=== PATIENT | female | born 1990 | race American Indian/Alaskan Native ===

== ENCOUNTER 2016-08-28 03:40 | Inpatient (IN) | payer MEDICAID ==
[2016-08-28] MEDS ORDERED: SUBLIMAZE IV PRN (06:16)
[2016-08-28] MEDS ORDERED: XYLOCAINE 2% INFILTRATI ONE (06:16)
[2016-08-28] MEDS ORDERED: MINERAL OIL PO PRN (06:16)
[2016-08-28] MEDS ORDERED: ePHEDrine SULFATE IV PRN ×2 (06:16→07:25)
[2016-08-28] MEDS ORDERED: ZOFRAN IV PRN (06:16)
[2016-08-28] MEDS ORDERED: BRETHINE SUB-Q PRN (06:16)
--- NOTE | 2016-08-28 06:19 | History and Physical Report ---
History of Present Illness Date of examination: 08/28/16 (pt presents in labor) Date of admission: 08/28/16 05:45 History of present illness: EDC Confirmation: 09/12/2016 Gestational Age: 10 3/7 weeks Past History : 3 Term Births: 2 Premature Births: 0 Living Children: 2 Para: 2 Mult. Births: 0 Prev : 0 Aborta: 0 Elect. Ab: 0 Spont. 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 of genital herpes: no Partner hx. of genital herpes: no Rash, Viral, or Febrile illness since last LMP? no Varicella/Chicken Pox Status: Unknown TB Risk: no Genetic History Congenital Heart Defect: Mom: no Dad: no Stevan Disease: Mom: no Dad: no Thalassemia Mom: no Dad: no Neural Tube Defect Mom: no Dad: no Down's Syndrome Mom: no Dad: no Young-Sachs Mom: no Dad: no Sickle Cell Disease/Trait Mom: no Dad: no Hemophilia Mom: no Dad: no Muscular Dystrophy Mom: no Dad: no Cystic Fibrosis Mom: no Dad: no [place] Chorea Mom: no Dad: no Mental Retardation Mom: no Dad: no Fragile X Mom: no Dad: no Other Genetic/Chromosomal Disorder Mom: no Dad: no Child w/other defect Mom: no Dad: no Enviromental Exposures Xray Exposure: no Medication, drug, or alcohol use since LMP: no Chemical/Other Exposure: no Exposure to Cat Liter: no Hx of Parvovirus (Fifth Disease): no Occupational Exposure to Children: none Comments: partner smokes marijuana regularly Current Allergies: No known allergies Laboratory Results Date/Time Collected: 02/18/2016 Routine Urinalysis Leukocytes: negative Nitrite: negative Urobilinogen: negative Protein: Negative Blood: negative Ketone: negative Bilirubin: negative Glucose: Negative Urine HCG: positive Review of Systems General Denies fever, chills, sweats, anorexia, fatigue, weakness, malaise, weight loss and sleep disorder. Denies nausea, vomiting, headache, swelling of legs, abdominal pain, vaginal discharge, vaginal bleeding and contractions. Denies vaginal discharge, incontinence, dysuria, hematuria, urinary frequency, amenorrhea, menorrhagia, abnormal vaginal bleeding, pelvic pain, genital sores, decreased libido, painful periods, painful sex, urinary urgency, hot flashes, vaginal dryness, vaginal itching and vaginal odor. CV Denies chest pains, palpitations, syncope, dyspnea on exertion, orthopnea, PND and peripheral edema. Resp Denies cough, dyspnea at rest, excessive sputum, hemoptysis, wheezing and pleurisy. GI Denies nausea, vomiting, diarrhea, constipation, change in bowel habits, abdominal pain, melena, hematochezia, jaundice, gas/bloating, indigestion/ heartburn, dysphagia and odynophagia. Endo Denies cold intolerance, heat intolerance, polydipsia, polyphagia, polyuria and unusual weight change. Breast Denies left breast lump, right breast lump, nipple discharge, bloody discharge from nipple, breast pain, abnormal mammogram and breast enlargement. MS Denies back pain, joint pain, joint swelling, muscle cramps, muscle weakness, stiffness, arthritis, sciatica, restless legs, leg pain at night and leg pain with exertion. Derm Denies rash, itching, dryness and suspicious lesions. Neuro Denies paralysis, paresthesias, headache, seizures, tremors, vertigo, transient blindness, frequent falls, frequent headaches and difficulty walking. Psych Denies depression, anxiety, irritability and mood swings. Eyes Denies blurring, diplopia, irritation, discharge, vision loss, eye pain and photophobia. ENT Denies earache, ear discharge, tinnitus, decreased hearing, nasal congestion, nosebleeds, sore throat and hoarseness. Allergy Denies urticaria, allergic rash, hay fever and recurrent infections. Heme Denies abnormal bruising, bleeding and enlarged lymph nodes. 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 Vulva/Vagina: No lesions, normal BUS, normal rugae Cervix: No lesions; no cervical motion tenderness Uterus: normal size and position, midline, mobile Adnexae: no masses or tenderness Rectovaginal: no masses or tenderness Past History - Obstetrical History Expected Date of Delivery: 09/12/16 Actual Gestation: 37 Week(s) 6 Day(s) : 3 Para: 2 Hx # Term Pregnancies: 2 Number of Living Children: 2 Medications and Allergies Allergies Allergy/AdvReac Type Severity Reaction Status Date / Time No Known Allergies Allergy Verified 03/26/15 08:08 Home Medications Medication Instructions Recorded Confirmed Last Taken Type Pnv with Ca,No.72/Iron/FA [Pnv 1 tab PO DAILY 12/07/14 12/07/14 12/06/14 14:00 History Plus Multivit Tab] 1 Lidocain2.5%/Prilocai2.5% [Emla] 5 gm TP ONCE #1 tube 03/26/15 Unknown Rx Lidocain2.5%/Prilocai2.5% [Emla] 5 gm TP ONCE PRN #1 tube 03/27/15 Unknown Rx - Vital Signs Vital signs: Vital Signs Pulse BP Pulse Ox 71 129/60 100 08/28/16 03:49 08/28/16 03:49 08/28/16 03:49 Temp Pulse Resp BP Pulse Ox 86 129/60 100 08/28/16 04:09 08/28/16 03:49 08/28/16 04:09 - Physical Exam Breasts: Positive: deferred Cardiovascular: Regular rate, Normal S1, Normal S2 Lungs: Positive: Normal air movement Abdomen: Positive: normal appearance, soft, normal bowel sounds. Negative: distention, tenderness Genitourinary (Female): Positive: normal external genitalia Vulva: both: normal Vagina: Positive: normal moisture. Negative: discharge Cervix: Negative: lesion, discharge Uterus: Positive: normal size, normal contour Adnexa: both: normal Anus/Rectum: Positive: normal perianal skin, heme negative. Negative: rectal mass, hemorrhoids Extremities: Positive: normal Deep Tendon Reflex Grade: Normal +2 - Obstetrical FHR: category 2 (variable decels) Uterine Contraction Monitor Mode: External Cervical Dilatation: 4 Cervical Effacement Percentage: 70 station: -1 Uterine Contraction Pattern: Regular Uterine Tone Measurement Phase: Resting Uterine Contraction Intensity: Moderate Results All other labs normal. Laboratory Data-Patient Name: BONI Crawley BEE Test Date Result Blood Type 04/01/2016 O Rh 04/01/2016 Positive Antibody Screen negative Rubella 04/01/2016 IMMUNE Serology (RPR) 04/01/2016 NR HBsAg 04/01/2016 Negative Hemoglobin 05/27/2016 9.4 Hematocrit 05/27/2016 29.3 Platelets 04/01/2016 272 [id number] Chlamydia DNA 08/11/2016 Negative GC DNA/Culture 08/11/2016 Urine Culture 04/01/2016 Final report Group B Strep cult 02/17/2015 Negative PAP 02/19/2016 Normal, Satisfactory HIV 04/01/2016 AFP/Quad Screen 02/18/2016 Glucola Test 3hr GTT (Fasting) 1 hr 2 hr 3 hr OPTIONAL LABS-Patient Name:BONI Crawley [facility] Test Date Result Varicella Ab Sickle Cell 04/01/2016 Negative PPD Fibronectin Cystic Fibrosis Parvovirus TSH Free T4 Hepatitis C ALT AST Uric Acid Creatinine 24 hr Urine Protein CE Assessment and Plan 26yo @ 37w6d in labor GBS negative Orders in EMR Anticipate delivery
[2016-08-28] MEDS: LACTATED RINGERS 1,000 ML IV SCH ×3 (06:36→07:33)
--- NOTE | 2016-08-28 06:59 | Progress Note ---
Assessment and Plan Position chges. Pt bolusing for epidural. ISE/IUPC placed. Re-eval as needed. Subjective - Subjective Date of service: 08/28/16 (variable decels cont.) Interval history: EDC Confirmation: 09/12/2016 Gestational Age: 10 3/7 weeks Past History : 3 Term Births: 2 Premature Births: 0 Living Children: 2 Para: 2 Mult. Births: 0 Prev : 0 Aborta: 0 Elect. Ab: 0 Spont. 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 of genital herpes: no Partner hx. of genital herpes: no Rash, Viral, or Febrile illness since last LMP? no Varicella/Chicken Pox Status: Unknown TB Risk: no Genetic History Congenital Heart Defect: Mom: no Dad: no Stevan Disease: Mom: no Dad: no Thalassemia Mom: no Dad: no Neural Tube Defect Mom: no Dad: no Down's Syndrome Mom: no Dad: no Young-Sachs Mom: no Dad: no Sickle Cell Disease/Trait Mom: no Dad: no Hemophilia Mom: no Dad: no Muscular Dystrophy Mom: no Dad: no Cystic Fibrosis Mom: no Dad: no [place] Chorea Mom: no Dad: no Mental Retardation Mom: no Dad: no Fragile X Mom: no Dad: no Other Genetic/Chromosomal Disorder Mom: no Dad: no Child w/other defect Mom: no Dad: no Enviromental Exposures Xray Exposure: no Medication, drug, or alcohol use since LMP: no Chemical/Other Exposure: no Exposure to Cat Liter: no Hx of Parvovirus (Fifth Disease): no Occupational Exposure to Children: none Comments: partner smokes marijuana regularly Current Allergies: No known allergies Laboratory Results Date/Time Collected: 02/18/2016 Routine Urinalysis Leukocytes: negative Nitrite: negative Urobilinogen: negative Protein: Negative Blood: negative Ketone: negative Bilirubin: negative Glucose: Negative Urine HCG: positive Review of Systems General Denies fever, chills, sweats, anorexia, fatigue, weakness, malaise, weight loss and sleep disorder. Denies nausea, vomiting, headache, swelling of legs, abdominal pain, vaginal discharge, vaginal bleeding and contractions. Denies vaginal discharge, incontinence, dysuria, hematuria, urinary frequency, amenorrhea, menorrhagia, abnormal vaginal bleeding, pelvic pain, genital sores, decreased libido, painful periods, painful sex, urinary urgency, hot flashes, vaginal dryness, vaginal itching and vaginal odor. CV Denies chest pains, palpitations, syncope, dyspnea on exertion, orthopnea, PND and peripheral edema. Resp Denies cough, dyspnea at rest, excessive sputum, hemoptysis, wheezing and pleurisy. GI Denies nausea, vomiting, diarrhea, constipation, change in bowel habits, abdominal pain, melena, hematochezia, jaundice, gas/bloating, indigestion/ heartburn, dysphagia and odynophagia. Endo Denies cold intolerance, heat intolerance, polydipsia, polyphagia, polyuria and unusual weight change. Breast Denies left breast lump, right breast lump, nipple discharge, bloody discharge from nipple, breast pain, abnormal mammogram and breast enlargement. MS Denies back pain, joint pain, joint swelling, muscle cramps, muscle weakness, stiffness, arthritis, sciatica, restless legs, leg pain at night and leg pain with exertion. Derm Denies rash, itching, dryness and suspicious lesions. Neuro Denies paralysis, paresthesias, headache, seizures, tremors, vertigo, transient blindness, frequent falls, frequent headaches and difficulty walking. Psych Denies depression, anxiety, irritability and mood swings. Eyes Denies blurring, diplopia, irritation, discharge, vision loss, eye pain and photophobia. ENT Denies earache, ear discharge, tinnitus, decreased hearing, nasal congestion, nosebleeds, sore throat and hoarseness. Allergy Denies urticaria, allergic rash, hay fever and recurrent infections. Heme Denies abnormal bruising, bleeding and enlarged lymph nodes. 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 Vulva/Vagina: No lesions, normal BUS, normal rugae Cervix: No lesions; no cervical motion tenderness Uterus: normal size and position, midline, mobile Adnexae: no masses or tenderness Rectovaginal: no masses or tenderness Patient reports: movement normal Objective - Vital Signs Vital Signs: Vital Signs - 12hr 08/28/16 08/28/16 08/28/16 03:49 03:54 03:56 Temperature Pulse Rate 71 93 H 108 H Pulse Rate [ From Monitor] Respiratory Rate Blood Pressure 129/60 Blood Pressure [Right Arm] O2 Sat by Pulse 100 100 64 L Oximetry 08/28/16 08/28/16 08/28/16 03:59 04:04 04:07 Temperature Pulse Rate 77 90 97 H Pulse Rate [ From Monitor] Respiratory Rate Blood Pressure Blood Pressure [Right Arm] O2 Sat by Pulse 100 100 71 L Oximetry 08/28/16 08/28/16 08/28/16 04:09 06:07 06:17 Temperature 98.0 F Pulse Rate 86 90 Pulse Rate [ 90 From Monitor] Respiratory 20 Rate Blood Pressure 104/62 Blood Pressure 104/62 [Right Arm] O2 Sat by Pulse 100 Oximetry 08/28/16 06:35 Temperature Pulse Rate Pulse Rate [ From Monitor] Respiratory 20 Rate Blood Pressure Blood Pressure [Right Arm] O2 Sat by Pulse Oximetry - Exam Breasts: deferred Cardiovascular: Regular rate Lungs: Normal air movement Abdomen: Present: normal appearance, soft. Absent: distention, tenderness Uterus: Present: normal FHR: auscultation normal, category 2 Uterine Contraction Monitor Mode: Internal Cervical Dilatation: 5 (AROM minimal fluid) Cervical Effacement Percentage: 90 (ISE/IUPC) station: -1 Uterine Contraction Pattern: Irregular Uterine Contraction Intensity: Moderate Extremities: normal Deep Tendon Reflex Grade: Normal +2
[2016-08-28] MEDS ORDERED: PITOCin/NS 20 UNIT/1000ML DRIP 20 UNITS/1,000 ML BAG IV SCH (07:00)
[2016-08-28] MEDS ORDERED: ePHEDrine SULFATE ONE (07:20)
[2016-08-28] MEDS ORDERED: NARCAN 2 MG/2 ML IV PRN (07:25)
[2016-08-28 07:27] LABS: Hematocrit 28.7 % (30.3-42.9); Hemoglobin 9.4 gm/dl (10.1-14.3); Mean Corpuscular HGB Conc 33 % (30-34); Mean Corpuscular Hemoglobin 27 pg (28-32); Mean Corpuscular Volume 83 fl (79-97); Platelet Count 184 K/mm3 (140-440); Red Blood Count 3.46 M/mm3 (3.65-5.03); Red Cell Distribution Width 15.9 % (13.2-15.2); White Blood Count 8.3 K/mm3 (4.5-11.0)
[2016-08-28] MEDS: PITOCin/NS 30 UNIT/500ML 30 UNITS/500 ML BAG IV SCH ×2 (07:45→08:13)
[2016-08-28] MEDS ORDERED: fentaNYL-BUPIV 2 MCG/ML-0.125% 200 MCG/100 ML BAG EPIDURAL SCH (08:00)
[2016-08-28] MEDS ORDERED: BENADRYL PO PRN (08:43)
[2016-08-28] MEDS ORDERED: MILK OF MAGNESIA PO PRN (08:43)
[2016-08-28] MEDS ORDERED: LANSINOH TP PRN (08:43)
[2016-08-28] MEDS ORDERED: TUCKS PAD TP PRN (08:43)
[2016-08-28] MEDS ORDERED: METHERGINE PO PRN (08:43)
[2016-08-28] MEDS ORDERED: DULCOLAX PR PRN (08:43)
[2016-08-28] MEDS ORDERED: TYLENOL PO PRN (08:43)
[2016-08-28] MEDS ORDERED: PHENERGAN PO PRN (08:43)
--- NOTE | 2016-08-28 08:51 | Procedure Note ---
OB Delivery Note - Delivery Date of Delivery: 08/28/16 Counter Hop: FROILAN SCHAEFFER Estimated blood loss: 300cc - Vaginal Delivery presentation: vertex Delivery position: OA Intrapartum events: mult.variable deceleratio Delivery induction: none Delivery augmentation: pitocin Delivery monitor: internal FHT, internal uterine Route of delivery: Delivery placenta: spontaneous Delivery cord: 3 umbilical vessels Episiotomy: none Delivery laceration: none Anesthesia: epidural Delivery comments: live born male over intact perineum Pt refused skin to skin. Baby dried and stim Crying Cord blood obt Placenta and membrane del complete and intact, 3 vessel cord. Pit IVFs 8/9, EBL 300, Wgt 7-5 Mom and baby remain LDR stable. - Infant A at 1 minute: 8 at 5 minutes: 9 Gender: Male (wgt 7-5)
[2016-08-28] MEDS ORDERED: SODIUM CHLORIDE FLUSH SYRINGE 10 ML IV NR (09:00)
[2016-08-28] MEDS: MOTRIN PO SCH ×2 (11:48→22:50)
[2016-08-28] MEDS: PRENATAL VITAMIN PO SCH (11:49)
[2016-08-28] MEDS: COLACE PO SCH ×2 (11:49→22:49)
[2016-08-28] MEDS: NORCO 5/325 PO PRN ×2 (16:29→22:49)
[2016-08-29 00:05] LABS: Hematocrit 24.7 % (30.3-42.9); Hemoglobin 8.2 gm/dl (10.1-14.3)
[2016-08-29] MEDS: MOTRIN PO SCH (05:17)
--- NOTE | 2016-08-29 05:18 | Discharge Summary ---
Providers - Providers Date of Admission: 08/28/16 05:45 Date of discharge: 08/29/16 (pt requested d/c) Attending physician: MONIE NOVAK Primary care physician: MONIE NOVAK Hospitalization Reason for admission: active labor Delivery: Episiotomy: none Laceration: none Incision: normal Other procedures: none complications: none Discharge diagnosis: IUP at term delivered baby: male Hospital course: uncomplicated vaginal delivery Pt w/o complaint OOB walking around in room. Pt req d/c today. VSS FF below umb Lochia small perineum slight swelling intact. H&H 10/27 chronic anemia Drop r/t blood loss from delivery. Pt is asymptomatic. Doing well s/p vag delivery. P: d/ c today with instructions RTO 4 weeks for PP care. Call for appt in 1 week for son's circ. RX provided @ d/c Condition at discharge: Good Disposition: DC-01 TO HOME OR SELFCARE - Discharge Diagnoses (1) Anemia affecting Status: Chronic Qualifiers: Trimester: third trimester Qualified Code(s): O99.013 - Anemia complicating , third trimester Comment: rx for FESO4 provided for po administration @ home (2) Spontaneous vaginal delivery Status: Acute Comment: RTO 4 weeks for PP care Plan - Discharge Medications Prescriptions: Docusate Sodium [Colace] 100 mg PO BID PRN #60 capsule PRN Reason: Constipation Ferrous Sulfate [Feosol 325 MG tab] 325 mg PO BID #60 tablet Ibuprofen [Motrin 800 MG tab] 800 mg PO TID PRN #30 tablet PRN Reason: Pain Lidocain2.5%/Prilocai2.5% [Emla] 5 gm TP PRN #1 tube - Provider Discharge Summary Activity: routine, no sex for 6 weeks, no heavy lifting 4 weeks, no strenuous exercise Diet: other (increase dietary iron) Instructions: routine Additional instructions: [] Smoking cessation referral if applicable(refer to patient education folder for contact #) [] Refer to [facility] Booklet Call your doctor immediately for: * Fever > 100.5 * Heavy vaginal bleeding ( >1 pad per hour) * Severe persistent headache * Shortness of breath * Reddened, hot, painful area to leg or breast * Drainage or odor from incision. * Keep incision clean and dry at all times and follow doctor's instructions regarding bathing/showering - Follow up plan Follow up: MONIE NOVAK MD [Primary Care Provider] - 09/27/16 (Congratulations! Please call [phone] to schedule your visit in 4 weeks and your son's circumcision in 1 week. Bring the EMLA cream with you to his visit. Take medications aas prescribed. Call with concerns. )
[2016-08-29] MEDS ORDERED: M-M-R II VACCINE SUB-Q ONE (08:43)
[2016-08-29] MEDS ORDERED: BOOSTRIX IM ONE (08:43)
[2016-08-29 10:10] VITALS: BP 99/62
[2016-08-29] MEDS: PRENATAL VITAMIN PO SCH (10:20)
[2016-08-29] MEDS: COLACE PO SCH (10:20)
== END 2016-08-29 12:10 | disposition home or self-care (01) | DRG 775 ==
LOC: TRG 03:40 → LD 05:45 → OB 10:00
PROVIDERS: ADMIT Obstetrics & Gynecology; ATTEND Obstetrics & Gynecology
PROC: 10E0XZZ Delivery of Products of Conception, External Approach (ICD-10-PCS; principal; 2016-08-28)
PROC: 3E0S3CZ (ICD-10-PCS; 2016-08-28)
PROC: 00HU33Z Insertion of Infusion Device into Spinal Canal, Percutaneous Approach (ICD-10-PCS; 2016-08-28)
DX: O99.02 Anemia complicating childbirth (principal); O76 Abnormality in fetal heart rate and rhythm complicating labor and delivery; Z3A.37 37 weeks gestation of pregnancy; Z37.0 Single live birth; D64.9 Anemia, unspecified
CPT/HCPCS: 36415; 85014; 85018; 85027; 86850; 86900; 86901; 99211; G0463; J2590; J3010; J7120

== ENCOUNTER 2019-08-17 05:06 | Emergency (ER) | payer MEDICAID, OTHER ==
[2019-08-17 05:13] VITALS: BP 120/58
[2019-08-17] MEDS ORDERED: ACETAMINOPHEN 500 MG TAB PO ONE (05:31)
[2019-08-17] MEDS ORDERED: CYCLOBENZAPRINE 10 MG TAB PO ONE (05:31)
[2019-08-17] MEDS ORDERED: IBUPROFEN 600 MG TAB PO ONE (05:31)
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
== END 2019-08-17 07:19 | disposition home or self-care (01) ==
LOC: ED 05:06
DX: M62.838 Other muscle spasm (principal); M62.830 Muscle spasm of back; Z79.899 Other long term (current) drug therapy; V49.49XA Driver injured in collision with other motor vehicles in traffic accident, initial encounter; Y92.410 Unspecified street and highway as the place of occurrence of the external cause; Y93.89 Activity, other specified; Y99.8 Other external cause status
CPT/HCPCS: 36415; 70450; 72125; 72128; 84703

== ENCOUNTER 2021-09-11 07:46 | Outpatient (CLI) | payer MEDICAID ==
[2021-09-11 10:10] VITALS: BP 115/54
== END 2021-09-11 11:50 | disposition home or self-care (01) ==
LOC: TRG 07:46 → APU 07:49 → TRG 11:50
PROVIDERS: ATTEND Obstetrics & Gynecology
DX: Z34.93 Encounter for supervision of normal pregnancy, unspecified, third trimester (principal); Z3A.38 38 weeks gestation of pregnancy
CPT/HCPCS: 59025

== ENCOUNTER 2021-09-11 23:36 | Inpatient (IN) | payer MEDICAID ==
[2021-09-12] MEDS ORDERED: miSOPROStol 200 MCG TAB PR PRN (00:21)
[2021-09-12] MEDS ORDERED: NalbUPHINE 10 MG/1 ML INJ IV PRN (00:21)
[2021-09-12] MEDS ORDERED: MINERAL OIL 30 ML ORAL LIQD PO PRN (00:21)
[2021-09-12] MEDS ORDERED: LIDOCAINE (2%) 20 MG/1 ML VIAL 20 ML MDV INFILTRATI ONE (00:21)
[2021-09-12] MEDS ORDERED: TERBUTALINE 1 MG/1 ML INJ SUB-Q PRN (00:21)
[2021-09-12] MEDS ORDERED: ACETAMINOPHEN 325 MG TAB PO PRN ×2 (00:21→16:19)
[2021-09-12] MEDS ORDERED: CARBOPROST TROMETHAMINE 250 MCG/1 ML INJ IM PRN (00:21)
[2021-09-12] MEDS ORDERED: OXYTOCIN 10 UNIT/1 ML INJ IM PRN (00:21)
[2021-09-12] MEDS ORDERED: ONDANSETRON 4 MG/2 ML INJ IV PRN ×2 (00:21→16:19)
[2021-09-12] MEDS ORDERED: METHYLERGONOVINE MALEATE 0.2 MG/ML VIAL IM PRN (00:21)
[2021-09-12] MEDS ORDERED: fentaNYL 100 MCG/2 ML INJ IV PRN (00:21)
[2021-09-12] MEDS ORDERED: ePHEDrine SULFATE 50 MG/1 ML INJ IV PRN ×2 (00:21→01:25)
[2021-09-12] MEDS ORDERED: LOPERAMIDE 2 MG CAP PO PRN (00:21)
[2021-09-12] MEDS ORDERED: LACTATED RINGERS 1,000 ML IV SCH (00:30)
[2021-09-12] MEDS ORDERED: OXYTOCIN DRIP 30 UNITS/500 ML BAG IV SCH ×2 (01:00)
--- NOTE | 2021-09-12 01:01 | History and Physical Report ---
History of Present Illness Date of examination: 09/12/21 Chief complaint: worsening contractions History of present illness: EDC Calculations by LMP: 09/19/2021 # 1 Delivery date: 04/2006 Weeks Gestation: 39 labor: no Delivery type: Infant Sex: Female weight: 5#13 Comments: no complications # 2 Delivery date: 03/26/2015 Weeks Gestation: 40.1 Delivery type: Vaginal Anesthesia type: none Delivery location: [facility] Infant Sex: male weight: 6.56 Comments: precip labor # 3 Delivery date: 08/28/2016 Weeks Gestation: 37.6 Delivery type: Vaginal Anesthesia type: Epidural Delivery location: [facility] Infant Sex: male weight: 7.31 Comments: Past Medical History: Reviewed history from 08/04/2014 and no changes required: Negative Past Medical History Past Surgical History: Reviewed and updated today: negative, Negative Past Surgical History Social History: Reviewed history from 02/19/2020 and no changes required: Patient is Smoking History: Patient has never smoked. Risk Factors: Smoked Tobacco Use: Never smoker Smokeless Tobacco Use: Never HIV High Risk Behavior: no Seatbelt Use: 100 % No Dietary Counseling Reason: pn yes PAP Smear History: Date of Last PAP Smear: 03/11/2020 Results: Normal Alcohol Use: no Drug Use: no Past Medical History Anesthesia Complications: negative Anemia: negative Autoimmune Disorder: negative Bleeding Disorder: negative Blood Transfusions: negative Breast Disease: negative Diabetes: negative Heart Disease: negative Hypertension: negative Hepatitis/Liver Disease: negative Kidney Disease/UTI: negative Neurologic/Epilepsy/Migraines: negative Phlebitis/Varicosities: negative Psychiatric: negative Pulmonary Disease/Asthma: negative Thyroid Disease: negative Hospitalizations: negative Surgery (Non-assurance auditor): negative, Negative Past Surgical History Abnormal PAP: negative NATHAN Exposure: negative Infertility: negative Uterine Anomaly: negative Uterine Surgery (not C/S): negative Other Gynecologic Problems: negative Social Hx: Patient is Smoking History: Patient has never smoked. Infection History Hx of STD: none HIV Risk Eval: no Genetic History Congenital Heart Defect: Mom: no Dad: no Stevan Disease: Mom: no Dad: no Thalassemia Mom: no Dad: no Neural Tube Defect Mom: no Dad: no Down's Syndrome Mom: no Dad: no Young-Sachs Mom: no Dad: no Sickle Cell Disease/Trait Mom: no Dad: no Hemophilia Mom: no Dad: no Muscular Dystrophy Mom: no Dad: no Cystic Fibrosis Mom: no Dad: no Sawyer Chorea Mom: no Dad: no Mental Retardation Mom: no Dad: no Fragile X Mom: no Dad: no Other Genetic/Chromosomal Disorder Mom: no Dad: no Child w/other defect Mom: no Dad: no Enviromental Exposures Xray Exposure: no Medication, drug, or alcohol use since LMP: no Chemical/Other Exposure: no Exposure to Cat Liter: no Hx of Parvovirus (Fifth Disease): no Occupational Exposure to Children: none Current Allergies: No known allergies Past History Past Medical History: other (see HPI) Past Surgical History: other (see HPI) 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 (see HPI) Family/Genetic History: other (see HPI) Social history: no significant social history - Obstetrical History Expected Date of Delivery: 09/19/21 Actual Gestation: 39 Week(s) 0 Day(s) : 4 Para: 3 Hx # Term Pregnancies: 3 Number of Pregnancies: 0 Spontaneous Abortions: 0 Induced : 0 Number of Living Children: 3 Medications and Allergies Allergies Allergy/AdvReac Type Severity Reaction Status Date / Time No Known Allergies Allergy Verified 03/26/15 08:08 Home Medications Medication Instructions Recorded Confirmed Last Taken Type Pnv,Calcium 72/Iron/Folic Acid 1 tab PO DAILY 12/07/14 08/29/16 12/06/14 14:00 History [Pnv Plus Multivit Tab] 1 Lidocain2.5%/Prilocai2.5% [Emla] 5 gm TP ONCE #1 tube 03/26/15 08/29/16 Unknown Rx Lidocain2.5%/Prilocai2.5% [Emla] 5 gm TP ONCE PRN #1 tube 03/27/15 08/29/16 Unknown Rx Ibuprofen [Motrin 800 MG tab] 800 mg PO TID PRN #30 tablet 08/28/16 Unknown Rx Lidocain2.5%/Prilocai2.5% [Emla] 5 gm TP PRN #1 tube 08/28/16 Unknown Rx Docusate Sodium [Colace] 100 mg PO BID PRN #60 capsule 08/29/16 Unknown Rx Ferrous Sulfate [Feosol 325 MG tab] 325 mg PO BID #60 tablet 08/29/16 Unknown Rx Tobramycin [Tobrex] 1 drop OP Q6HR #1 bottle 01/11/18 Unknown Rx Cyclobenzaprine [Flexeril] 10 mg PO Q8H PRN #21 tablet 08/17/19 Unknown Rx Ibuprofen [Motrin] 800 mg PO Q8HR PRN #30 tablet 08/17/19 Unknown Rx Active Meds: Active Medications Acetaminophen (Acetaminophen 325 Mg Tab) 650 mg PO Q4H PRN PRN Reason: Pain, Mild (1-3) Carboprost Tromethamine (Carboprost Tromethamine 250 Mcg/1 Ml Inj) 250 mcg IM ONCE PRN PRN Reason: Uterine Bleeding Ephedrine Sulfate (Ephedrine Sulfate 50 Mg/1 Ml Inj) 10 mg IV Q2M PRN PRN Reason: Hypotension Fentanyl (Fentanyl 100 Mcg/2 Ml Inj) 100 mcg IV Q2H PRN PRN Reason: Pain,Severe (7-10) LABOR PAIN Oxytocin/Sodium Chloride (Pitocin/Ns 30 Unit/500ml) 30 units in 500 mls @ 2 mls/hr IV TITR CHERYL; Protocol Lactated Ringer's (Lactated Ringers) 1,000 mls @ 125 mls/hr IV DIRECT CHERYL Oxytocin/Sodium Chloride (Pitocin/Ns 30 Unit/500ml) 30 units in 500 mls @ 40 mls/hr IV TITR CHERYL; Protocol Loperamide HCl (Loperamide 2 Mg Cap) 2 mg PO ONCE PRN PRN Reason: give with Hemabate Methylergonovine Maleate (Methylergonovine Maleate 0.2 Mg/Ml Vial) 0.2 mg IM ONCE PRN PRN Reason: Uterine Bleeding Mineral Oil (Mineral Oil 30 Ml Oral Liqd) 30 ml PO QHS PRN PRN Reason: Constipation Misoprostol (Misoprostol 200 Mcg Tab) 800 mcg GA ONCE PRN PRN Reason: Uterine Bleeding Nalbuphine HCl (Nalbuphine 10 Mg/1 Ml Inj) 10 mg IV Q2H PRN PRN Reason: Pain, Moderate (4-6) Ondansetron HCl (Ondansetron 4 Mg/2 Ml Inj) 4 mg IV Q8H PRN PRN Reason: Nausea And Vomiting Oxytocin (Oxytocin 10 Unit/1 Ml Inj) 10 unit IM ONCE PRN PRN Reason: Uterine Bleeding Terbutaline Sulfate (Terbutaline 1 Mg/1 Ml Inj) 0.25 mg SUB-Q ONCE PRN PRN Reason: Hyperstimulation/Hypertonicity Review of Systems All systems: negative - Vital Signs Vital signs: Vital Signs Temp Resp Pulse Ox 98.2 F 16 99 09/11/21 23:52 09/11/21 23:52 09/11/21 23:52 Temp Pulse Resp BP Pulse Ox 98.2 F 98 H 16 99 09/11/21 23:52 09/12/21 00:53 09/11/21 23:52 09/12/21 00:53 - Physical Exam Breasts: Positive: normal Cardiovascular: Regular rate Lungs: Positive: Clear to auscultation, Normal air movement Abdomen: Positive: normal appearance, soft Genitourinary (Female): Positive: normal external genitalia, normal perenium Vulva: both: normal Vagina: Positive: normal moisture Uterus: Positive: normal size, normal contour Anus/Rectum: Positive: normal perianal skin Extremities: Positive: normal Deep Tendon Reflex Grade: Normal +2 - Obstetrical FHR: category 1 Uterine Contraction Monitor Mode: External Cervical Dilatation: 4 (SVE by title i math tutor) Cervical Effacement Percentage: 90 station: -2 Uterine Contraction Pattern: Regular Uterine Tone Measurement Phase: Contraction Uterine Contraction Intensity: Moderate Results All other labs normal. Assessment and Plan 31y/o @ 39+0 weeks admitted in active labor, she was seen earlier in triage and was 1cm, she is now 4/90/-2. pt requesting IV sedation and then epidural. GBS is negative. Admission orders in EMR. All questions addressed, anticipate . - Patient Problems (1) 39 weeks gestation of Current Visit: Yes Status: Acute (2) Active labor Current Visit: No Status: Acute
[2021-09-12 01:20] LABS: Hematocrit 30.4 % (30.3-42.9); Hemoglobin 9.7 gm/dl (10.1-14.3); Mean Corpuscular HGB Conc 32 % (30-34); Mean Corpuscular Volume 82 fl (79-97); Platelet Count 213 K/mm3 (140-440); Red Blood Count 3.69 M/mm3 (3.65-5.03); Red Cell Distribution Width 16.8 % (13.2-15.2)
[2021-09-12] MEDS ORDERED: fentaNYL-BUPIV 2 MCG/ML-0.125% 200 MCG/100 ML BAG EPIDURAL SCH (01:25)
[2021-09-12] MEDS ORDERED: NALOXONE 0.4 MG/1 ML INJ IV PRN (01:25)
[2021-09-12] MEDS ORDERED: BUPIVACAINE/PF (0.25%) 2.5 MG/ML 30 ML VIAL INFILTRATI ONE (01:27)
--- NOTE | 2021-09-12 01:50 | Anesthesia Consultation ---
Anesthesia Consult and Med Hx Date of service: 09/12/21 - Airway Anesthetic Teeth Evaluation: Good ROM Head & Neck: Adequate Mental/Hyoid Distance: Adequate Mallampati Class: Class II Intubation Access Assessment: Probably Good - Pulmonary Exam CTA: Yes - Cardiac Exam Cardiac Exam: RRR - Pre-Operative Health Status ASA Pre-Surgery Classification: ASA2 Proposed Anesthetic Plan: Epidural - Pulmonary Hx Smoking: No Hx Asthma: No Hx Respiratory Symptoms: No SOB: No COPD: No Home Oxygen Therapy: No Hx Pneumonia: No Hx Sleep Apnea: No - Cardiovascular System Hx Hypertension: No Hx Coronary Artery Disease: No Hx Heart Attack/AMI: No Hx Angina: No Hx Percutaneous Transluminal Coronary Angioplasty (PTCA): No Hx Cardia Arrhythmia: No Hx Pacemaker: No Hx Internal Defibrillator: No Hx Valvular Heart Disease: No Hx Heart Murmur: No Hx Peripheral Vascular Disease: No - Central Nervous System Hx Neuromuscular Disorder: No Hx Seizures: No CVA: No Hx Back Pain: No Hx Psychiatric Problems: No - Gastrointestinal Hx Ulcer: No Hx Gastroesophageal Reflux Disease: No - Endocrine Hx Renal Disease: No Hx End Stage Renal Disease: No Hx Cirrhosis: No Hx Liver Disease: No Hx Insulin Dependent Diabetes: No Hx Non-Insulin Dependent Diabetes: No Hx Thyroid Disease: No Hx Hypothyroidism: No Hx Hyperthyroidism: No - Hematic Hx Anemia: No Hx Sickle Cell Disease: No - Other Systems Hx Alcohol Use: No Hx Substance Use: No Hx Cancer: No Hx Obesity: No
--- NOTE | 2021-09-12 01:50 | Anesthesia Day of Surgery ---
Anesthesia Day of Surgery - Day of Surgery Patient Examined: Yes Patient H&P Reviewed: Yes Patient is NPO: Yes Beta Blockers: No Cardiac Clearance: No Pulmonary Clearance: No Sina's Test: N/A
--- NOTE | 2021-09-12 01:51 | Progress Note ---
Labor Epidural - Labor Epidural Start Time: :33 Stop Time: :37 Performed by:: GAURANG WORKMAN Procedure: Epidural Requested for Labor Pain. H&P and PT Chart reviewed and consent obtained. Time out performed and the procedure was explained, all questions answered. Patient was placed in a sitting position with monitors applied. The PTs back was prepped and draped in usual sterile fashion. The Skin was localized with 3 mL of 1% lidocaine at L3-L4. A 17-gauge Touhy epidural needle was advanced to DIPTI with saline at 7 cm and no blood/CSF was noted via epidural needle. Epidural catheter was advanced to 12 cm. There was negative aspiration for blood and CSF in the catheter and negative response to a test dose of 3 ml 1.5% lidocaine w/ Epi and a sterile dressing was applied Patient tolerated the procedure well and there were no immediate complications noted.
--- NOTE | 2021-09-12 04:06 | Procedure Note ---
OB Delivery Note - Delivery Date of Delivery: 09/12/21 Court Commissioner: DAVIDA POP Estimated blood loss: 200cc - Vaginal Delivery presentation: vertex Delivery position: OA (DANK) Intrapartum events: none Delivery induction: none Delivery monitor: external FHT, external uterine Route of delivery: Delivery placenta: spontaneous Delivery cord: nuchal cord, 3 umbilical vessels Episiotomy: none Delivery laceration: none Anesthesia: epidural Delivery comments: baby girl birthed over intact perineum, SROM of bag after delivery of head while pushing, light mec fluid noted. Cord around neck x 1 somersaulted through. Infant dried and stimulated on mother's abdomen, FOC cut 3 vessel cord after cessation of pulsation. Placenta delivered intact and complete. pit IVF infusing. no lacerations. EBL 200, apgars 8/9, wt 7#8oz. all counts correct. mother and infant remain LDR stable. - A at 1 minute: 8 at 5 minutes: 9 Infant Gender: Female (7#8oz)
[2021-09-12] MEDS ORDERED: BENZOCAINE/MENTHOL 20/0.5% TOP SPRAY 56 GM TP PRN (16:19)
[2021-09-12] MEDS ORDERED: diphenhydrAMINE 25 MG CAP PO PRN (16:19)
[2021-09-12] MEDS ORDERED: MAGNESIUM HYDROXIDE (MOM) ORAL LIQD UDC PO PRN (16:19)
[2021-09-12] MEDS ORDERED: LANOLIN/ZINC/DIMETHICONE (LANSINOH) 7 GM TP PRN (16:19)
[2021-09-12] MEDS ORDERED: PROMETHAZINE 25 MG TAB PO PRN (16:19)
[2021-09-12] MEDS ORDERED: WITCH HAZEL/ GLYCERIN PAD TP PRN (16:19)
[2021-09-12] MEDS: IBUPROFEN 800 MG TAB PO SCH ×2 (17:18→22:43)
[2021-09-12 17:30] LABS: Hemoglobin 8.6 gm/dl (10.1-14.3)
--- NOTE | 2021-09-13 00:37 | Post Anesthesia Evaluation ---
- Post Anesthesia Evaluation Patient Participated: Yes Airway Patent: Yes Stable Respiratory Function: Yes Nausea/Vomiting: No Temp > 96.8F: Yes Pain Manageable: Yes Adequeate Hydration: Yes Anesthesia Complications: No Block Receding Appropriately: Yes Patient on Ventilator: No
[2021-09-13] MEDS: IBUPROFEN 800 MG TAB PO SCH ×2 (05:41→11:40)
[2021-09-13] MEDS ORDERED: TETANUS,DIPH,PERTUSS(ACELL) VACCINE 0.5 ML SYRINGE IM ONE (06:00)
--- NOTE | 2021-09-13 08:36 | Discharge Summary ---
Providers - Providers Date of Admission: 09/12/21 00:21 Date of discharge: 09/13/21 Attending physician: JANAE FUNK Primary care physician: JANAE FUNK Hospitalization Reason for admission: active labor Delivery: Episiotomy: none Laceration: none Other procedures: none complications: none Discharge diagnosis: IUP at term delivered baby: female Hospital course: S: Pt doing well. Voiding, ambulating, passing flatus okay. Breast and bottle feeding. BC: Nexplanon. O: VSS. Fundus firm, minimal bleeding noted. H/H 8.6/27.0. Asymptomatic anemia of delivery. Adequate I&Os. A: 31 y.o. s/p . In good condition . P: Discharge home with instructions. To scheduled visit in the office in 4-6 weeks. Condition at discharge: Good Disposition: 01 HOME / SELF CARE / HOMELESS Plan - Discharge Medications Prescriptions: Docusate Sodium [Colace] 100 mg PO BID PRN #60 capsule PRN Reason: Constipation Ferrous Sulfate [Feosol 325 MG tab] 325 mg PO QDAY #30 tablet Ibuprofen [Motrin] 800 mg PO Q8HR PRN #30 tablet PRN Reason: Pain, Moderate (4-6) - Provider Discharge Summary Activity: routine, no sex for 6 weeks, no heavy lifting 4 weeks, no strenuous exercise Diet: routine Instructions: routine Additional instructions: [] Smoking cessation referral if applicable(refer to patient education folder for contact #) [] Refer to [facility] Booklet Call your doctor immediately for: * Fever > 100.5 * Heavy vaginal bleeding ( >1 pad per hour) * Severe persistent headache * Shortness of breath * Reddened, hot, painful area to leg or breast * Drainage or odor from incision. * Keep incision clean and dry at all times and follow doctor's instructions regarding bathing/showering - Follow up plan Follow up: JANAE FUNK MD [Primary Care Provider] - 6 Weeks (- Congratulations on the of your baby girl! - Thank you for allowing us to take care of you! - Please schedule your visit in the office in 4-6 weeks. - Should you have any questions or concerns after discharge, please do not hesitate to call the office at [phone]. )
[2021-09-13] MEDS ORDERED: PRENATAL VIT27-FE FUMARATE-FOLIC ACID VIT TAB PO SCH (10:00)
[2021-09-13 12:11] VITALS: BP 126/68
== END 2021-09-13 11:55 | disposition home or self-care (01) | DRG 775 ==
LOC: TRG 23:36 → APU 23:57 → TRG 09-12 00:21 → LD 09-12 00:21 → OB 09-12 12:35
PROVIDERS: ADMIT Obstetrics & Gynecology; ATTEND Obstetrics & Gynecology
PROC: 10E0XZZ Delivery of Products of Conception, External Approach (ICD-10-PCS; principal; 2021-09-12)
PROC: 3E0R3BZ Introduction of Anesthetic Agent into Spinal Canal, Percutaneous Approach (ICD-10-PCS; 2021-09-12)
PROC: 00HU33Z Insertion of Infusion Device into Spinal Canal, Percutaneous Approach (ICD-10-PCS; 2021-09-12)
PROC: 3E0234Z Introduction of Serum, Toxoid and Vaccine into Muscle, Percutaneous Approach (ICD-10-PCS; 2021-09-13)
DX: O69.81X0 Labor and delivery complicated by cord around neck, without compression, not applicable or unspecified (principal); Z3A.39 39 weeks gestation of pregnancy; Z20.822 Contact with and (suspected) exposure to COVID-19; Z23 Encounter for immunization; Z37.0 Single live birth; O90.81 Anemia of the puerperium
CPT/HCPCS: 31720; 36415; 85014; 85018; 85027; 86592; 86850; 86900; 86901; 99211; G0378; J3490; G0463; U0003